=== PATIENT | female | born 1995 | race Caucasian/White ===

== ENCOUNTER 2018-03-31 10:24 | Emergency (ER) | payer MEDICAID, OTHER ==
[~2018-03-31] VITALS: Ht 157.5 cm; Wt 80.0 kg
[2018-03-31 10:30] VITALS: BP 119/59; PULSE 90; RESP 16; TEMP 98.6; O2SAT 99
[2018-03-31 10:57] VITALS: BP 120/62; PULSE 82; RESP 16; O2SAT 100
[2018-03-31 11:16] LABS: AUTOMATED NEUTROPHIL # 4.1 TH/MM3 (1.8-7.7); BASOPHIL % 0.4 % (0.0-2.0); EOSINOPHIL # 0.2 TH/MM3 (0-0.4); EOSINOPHIL % 2.3 % (0.0-4.0); HEMATOCRIT 37.8 % (35.0-46.0); HEMOGLOBIN 12.6 GM/DL (11.6-15.3); LYMPH % 30.2 % (9.0-44.0); LYMPHOCYTE # 2.1 TH/MM3 (1.0-4.8); MEAN CELL VOLUME 85.7 FL (80.0-100.0); MEAN CORPUSCULAR HEMOGLOBIN 28.6 PG (27.0-34.0); MEAN CORPUSCULAR HGB CONC 33.4 % (32.0-36.0); MEAN PLATELET VOLUME 8.7 FL (7.0-11.0); MONO % 7.6 % (0.0-8.0); MONOCYTE # 0.5 TH/MM3 (0-0.9); NEUT % 59.5 % (16.0-70.0); PLATELET COUNT 241 TH/MM3 (150-450); RED BLOOD COUNT 4.41 MIL/MM3 (4.00-5.30); RED CELL DISTRIBUTION WIDTH 13.8 % (11.6-17.2); WHITE BLOOD COUNT 6.9 TH/MM3 (4.0-11.0)
[2018-03-31 11:30] LABS: BLOOD UREA NITROGEN 9 MG/DL (7-18); CALCIUM 8.5 MG/DL (8.5-10.1); CHLORIDE 107 MEQ/L (98-107); CREATININE 0.69 MG/DL (0.50-1.00); GLOMERULAR FILTRATION RATE 106 ML/MIN (>89); GLUCOSE,RANDOM 88 MG/DL (74-106); SODIUM (NA) 139 MEQ/L (136-145)
[2018-03-31 11:33] LABS: TROPONIN I LESS THAN 0.02 NG/ML (0.02-0.05)
--- NOTE | 2018-03-31 11:57 | RADRPT ---
EXAM DATE: 03/31/2018 11:52 AM EDT AGE/SEX: 23 years / Female INDICATIONS: Chest pain today CLINICAL DATA: This is the patient's initial encounter. Patient reports that signs and symptoms have been present for 1 day and indicates a pain score of 8/10. MEDICAL/SURGICAL HISTORY: None. None. COMPARISON: No prior exams available for comparison. FINDINGS: A single AP view of the chest demonstrates the lungs to be symmetrically aerated without evidence of mass, infiltrate or effusion. The cardiomediastinal contours are unremarkable. Osseous structures a re intact. CONCLUSION: No acute cardiopulmonary process. Electronically signed by: Martin Miller MD 03/31/2018 11:56 AM EDT
--- NOTE | 2018-03-31 13:44 | PD ---
Physical Exam Narrative I, Dr. Horton, have reviewed the advance practice practitioner's documentation and am in agreement, met with the patient face to face, made the diagnosis, and the medical decision making was done by me. *My assessment and Findings: See mid-level provider note for full history and physical and disposition.Patient presents to the emergency department complaining of chest pain that started this morning while she was asleep. Pain is in left side radiating down her left arm. She describes the pain as being constant, nonradiating, 7-8 out of 10. States she has similar pain back in July and was admitted for observation and discharge soon thereafter. She reports some shortness of breath, but denies fever/chills/nausea/vomiting/ recent travel/lower extremity edema. Data Data Last Documented VS Vital Signs Date Time Temp Pulse Resp B/P (MAP) Pulse Ox O2 Delivery O2 Flow Rate FiO2 03/31/18 11:08 100 Nasal Cannula 2.00 03/31/18 11:08 (81) 03/31/18 10:57 82 16 03/31/18 10:30 98.6 Orders Orders Electrocardiogram (03/31/18 ) Complete Blood Count With Diff (03/31/18 10:58) Basic Metabolic Panel (Bmp) (03/31/18 10:58) Ckmb (Isoenzyme) Profile (03/31/18 10:58) Troponin I (03/31/18 10:58) Chest, Single Ap (03/31/18 10:58) Iv Access Insert/Monitor (03/31/18 10:58) Ecg Monitoring (03/31/18 10:58) Oxygen Administration (03/31/18 10:58) Oximetry (03/31/18 10:58) D-Dimer (03/31/18 11:09) Ed Urine Pregnancytest Poc (03/31/18 12:07) Ct Pulmonary Angiogram (03/31/18 ) Troponin I (03/31/18 13:43) Iohexol 350 Inj (Omnipaque 350 Inj) (03/31/18 14:00) Ketorolac Inj (Toradol Inj) (03/31/18 14:45) Ed Discharge Order (03/31/18 15:07) Labs Laboratory Tests Test 03/31/18 11:05 03/31/18 11:20 03/31/18 14:20 White Blood Count 6.9 TH/MM3 Red Blood Count 4.41 MIL/MM3 Hemoglobin 12.6 GM/DL Hematocrit 37.8 % Mean Corpuscular Volume 85.7 FL Mean Corpuscular Hemoglobin 28.6 PG Mean Corpuscular Hemoglobin Concent 33.4 % Red Cell Distribution Width 13.8 % Platelet Count 241 TH/MM3 Mean Platelet Volume 8.7 FL Neutrophils (%) (Auto) 59.5 % Lymphocytes (%) (Auto) 30.2 % Monocytes (%) (Auto) 7.6 % Eosinophils (%) (Auto) 2.3 % Basophils (%) (Auto) 0.4 % Neutrophils # (Auto) 4.1 TH/MM3 Lymphocytes # (Auto) 2.1 TH/MM3 Monocytes # (Auto) 0.5 TH/MM3 Eosinophils # (Auto) 0.2 TH/MM3 Basophils # (Auto) 0.0 TH/MM3 CBC Comment DIFF FINAL Differential Comment Blood Urea Nitrogen 9 MG/DL Creatinine 0.69 MG/DL Random Glucose 88 MG/DL Calcium Level 8.5 MG/DL Sodium Level 139 MEQ/L Potassium Level 3.8 MEQ/L Chloride Level 107 MEQ/L Carbon Dioxide Level 24.0 MEQ/L Anion Gap 8 MEQ/L Estimat Glomerular Filtration Rate 106 ML/MIN Total Creatine Kinase 60 U/L Troponin I LESS THAN 0.02 NG/ML LESS THAN 0.02 NG/ML D-Dimer Quantitative (PE/DVT) 0.82 MG/L FEU [facility] Supervised Visit with CRISTIAN: Yes Interpretation(s) ECG: Sinus rhythm, rate 86, no ST elevation or ST depression Labs: D-dimer elevated Last Impressions Chest X-Ray 03/31/18 1058 Signed Impressions: CONCLUSION: No acute cardiopulmonary process. Narrative Course First and second troponin negative, CTA negative for PE Diagnosis Primary Impression: Chest pain Qualified Codes: R07.9 - Chest pain, unspecified Patient Instructions: Chest Pain (ED), General Instructions Additional Instruction: 1. Meds as directed.2. Return to ER for fever, vomiting, shortness of breath, worsening chest pain, or for any new/worrisome/worsening symptoms. Med/Other Pt SpecificInfo: Prescription(s) given Scripts Diclofenac Sodium DR (Diclofenac Sodium DR) 75 Mg Tabdr 75 MG PO BID Y for PAIN SCALE 1 TO 10, #20 TAB 0 Refills Prov: Lauryn Horton MD 03/31/18 Disposition: 01 DISCHARGE HOME Condition: Stable Lauryn Horton MD Mar 31, 2018 13:44
--- NOTE | 2018-03-31 13:49 | PD ---
HPI Chief Complaint: Chest Pain Time Seen by Provider: 11:10 Travel History International Travel<30 days: No Contact w/Intl Traveler<30days: No Traveled to known affect area: No History of Present Illness HPI 23-year-old female that presents to the ED for evaluation of left-sided chest pain radiating to her shoulder. Per patient has had this for the past 1 day. She states that the pain is 7 out of 10. Radiates to her left shoulder. She has never had that before. Per patient she was at work when her coworkers told her that that is concerning and she should get checked. She comes here to get checked. Per patient she does not take anything for this. She did took an aspirin today before coming. States having had something like this in July and was not really given a diagnosis. States all she was doing was sleeping. Denies . pain worst with deep breaths. No recent travel. No vaginal bleeding. No bowel movement or urinary issues. No other medical issues at this time. Has no allergies to medication. Has not seen anybody for this. No history of asthma or COPD. Denies any smoking. Denies any drugs. PFSH Past Medical History Heart Rhythm Problems: Yes ?: Unknown LMP: january 2018 : 1 Para: 1 Past Surgical History Appendectomy: Yes Family History Family Myocardial Infarction: Yes Social History Alcohol Use: No Tobacco Use: No Substance Use: No Allergies-Medications (Allergen,Severity, Reaction): Coded Allergies: No Known Allergies (Unverified , 03/31/18) Reported Meds & Prescriptions Reported Meds & Active Scripts Active Diclofenac Sodium DR (Diclofenac Sodium) 75 Mg Tabdr 75 Mg PO BID PRN Review of Systems Except as stated in HPI: all other systems reviewed are Neg Physical Exam Narrative GENERAL: SKIN: Warm and dry. HEAD: Atraumatic. Normocephalic. EYES: Pupils equal and round. No scleral icterus. No injection or drainage. ENT: No nasal bleeding or discharge. Mucous membranes pink and moist. Tongue is midline. No uvula deviation. NECK: Trachea midline. No JVD. CARDIOVASCULAR: Regular rate and rhythm. No murmurs, S3, S4. RESPIRATORY: No accessory muscle use. Clear to auscultation. Breath sounds equal bilaterally. GASTROINTESTINAL: Abdomen soft, non-tender, nondistended. Hepatic and splenic margins not palpable. MUSCULOSKELETAL: Extremities without clubbing, cyanosis, or edema. No obvious deformities. Full range of motion of the upper and lower extremities bilaterally. 2+ pulses bilaterally. NEUROLOGICAL: Awake and alert. No obvious cranial nerve deficits. Motor grossly within normal limits. Five out of 5 muscle strength in the arms and legs. Normal speech. PSYCHIATRIC: Appropriate mood and affect; insight and judgment normal. Data Data Last Documented VS Vital Signs Date Time Temp Pulse Resp B/P (MAP) Pulse Ox O2 Delivery O2 Flow Rate FiO2 03/31/18 11:08 100 Nasal Cannula 2.00 03/31/18 11:08 (81) 03/31/18 10:57 82 16 03/31/18 10:30 98.6 Orders Orders Electrocardiogram (03/31/18 ) Complete Blood Count With Diff (03/31/18 10:58) Basic Metabolic Panel (Bmp) (03/31/18 10:58) Ckmb (Isoenzyme) Profile (03/31/18 10:58) Troponin I (03/31/18 10:58) Chest, Single Ap (03/31/18 10:58) Iv Access Insert/Monitor (03/31/18 10:58) Ecg Monitoring (03/31/18 10:58) Oxygen Administration (03/31/18 10:58) Oximetry (03/31/18 10:58) D-Dimer (03/31/18 11:09) Ed Urine Pregnancytest Poc (03/31/18 12:07) Ct Pulmonary Angiogram (03/31/18 ) Troponin I (03/31/18 13:43) Iohexol 350 Inj (Omnipaque 350 Inj) (03/31/18 14:00) Ketorolac Inj (Toradol Inj) (03/31/18 14:45) Ed Discharge Order (03/31/18 15:07) Labs Laboratory Tests Test 03/31/18 11:05 03/31/18 11:20 03/31/18 14:20 White Blood Count 6.9 TH/MM3 Red Blood Count 4.41 MIL/MM3 Hemoglobin 12.6 GM/DL Hematocrit 37.8 % Mean Corpuscular Volume 85.7 FL Mean Corpuscular Hemoglobin 28.6 PG Mean Corpuscular Hemoglobin Concent 33.4 % Red Cell Distribution Width 13.8 % Platelet Count 241 TH/MM3 Mean Platelet Volume 8.7 FL Neutrophils (%) (Auto) 59.5 % Lymphocytes (%) (Auto) 30.2 % Monocytes (%) (Auto) 7.6 % Eosinophils (%) (Auto) 2.3 % Basophils (%) (Auto) 0.4 % Neutrophils # (Auto) 4.1 TH/MM3 Lymphocytes # (Auto) 2.1 TH/MM3 Monocytes # (Auto) 0.5 TH/MM3 Eosinophils # (Auto) 0.2 TH/MM3 Basophils # (Auto) 0.0 TH/MM3 CBC Comment DIFF FINAL Differential Comment Blood Urea Nitrogen 9 MG/DL Creatinine 0.69 MG/DL Random Glucose 88 MG/DL Calcium Level 8.5 MG/DL Sodium Level 139 MEQ/L Potassium Level 3.8 MEQ/L Chloride Level 107 MEQ/L Carbon Dioxide Level 24.0 MEQ/L Anion Gap 8 MEQ/L Estimat Glomerular Filtration Rate 106 ML/MIN Total Creatine Kinase 60 U/L Troponin I LESS THAN 0.02 NG/ML LESS THAN 0.02 NG/ML D-Dimer Quantitative (PE/DVT) 0.82 MG/L FEU [facility] Medical Decision Making Medical Screen Exam Complete: Yes Emergency Medical Condition: Yes Medical Record Reviewed: Yes Interpretation(s) CBC & BMP Diagram 03/31/18 11:05 Calcium Level 8.5 D-dimer slightly positive. EKG shows sinus rhythm with no sign of acute ischemia and arrhythmia rhythm and attending. Troponin and CK-MB negative. Differential Diagnosis Chest pain versus a typical chest pain versus ACS versus pleurisy versus PE Narrative Course 23-year-old female that presents to the ED for evaluation of chest pain. Patient was properly examined and was found to have signs and symptoms of unclear etiology. This appears to be a typical chest pain. She does not really have risk factors for heart disease. Pain gets worse with deep breaths. D-dimer will be added to rule out PE to her blood work. Patient already had blood work started by ED triage. Labs and imaging showed no sign of acute disease at this time. D-dimer was positive to CT pulmonary exam was ordered. CT pulmonary exam was negative for acute findings. My attending Dr Horton evaluated the patient and recommends 2nd top and if negative patient can be discharged. Second troponin was negative. Patient was reassured. This time I think is reasonable for follow-up outpatient. Patient was given Toradol for pain. Patient was given a prescription for diclofenac sodium for pain. Told to follow-up with PCP. See ED worsening symptoms. Given paperwork for [facility]. Diagnosis Primary Impression: Chest pain Qualified Codes: R07.1 - Chest pain on breathing Additional Impression: Pleurisy Referrals: [facility] Patient Instructions: General Instructions Departure Forms: Tests/Procedures, Work Release Enter return to work date: Apr 02, 2018 Additional Instructions: Take medication as prescribed. Follow-up with PCP. See ED if worsening symptoms. Med/Other Pt SpecificInfo: Prescription(s) given Scripts Diclofenac Sodium DR (Diclofenac Sodium DR) 75 Mg Tabdr 75 MG PO BID Y for PAIN SCALE 1 TO 10, #20 TAB 0 Refills Prov: Lauryn Horton MD 03/31/18 Disposition: 01 DISCHARGE HOME Condition: Stable Tee Lau Mar 31, 2018 13:49
[2018-03-31] MEDS ORDERED: IOHEXOL 350 MG/ML 10 ML VIAL (for RAD DIAG) IVCONTRAST ONE (14:00)
--- NOTE | 2018-03-31 14:22 | RADRPT ---
EXAM DATE: 03/31/2018 2:13 PM EDT AGE/SEX: 23 years / Female INDICATIONS: Chest pain and left arm pain today. CLINICAL DATA: This is the patient's initial encounter. Patient reports that signs and symptoms have been present for 1 day and indicates a pain score of 7/10. MEDICAL/SURGICAL HISTORY: None. None. RADIATION DOSE: 8.02 CTDI (mGy) COMPARISON: No prior exams available for comparison. TECHNIQUE: Volumetric scanning was performed using a multi-row detector CT scanner during bolus infu cami of 58 ml Omnipaque 350 (iohexol) nonionic water-soluble contrast as a single exam dose. The otilia a was post processed with a variety of visualization algorithms including full volume maximum intensi ty projection and sliding thin slab reformation. Using automated exposure control and adjustment of the mA and/or kV according to patient size, radiation dose was kept as low as reasonably achievable t o obtain optimal diagnostic quality images. DICOM format image data is available electronically for review and comparison. FINDINGS: The examination is of good diagnostic quality. No pulmonary embolus is identified. The heart is normal in size. No hilar or mediastinal adenopathy is seen. No pericardial effusion is e vident. The visualized pulmonary parenchyma is clear. The limited portions of upper abdomen visualized are unremarkable. CONCLUSION: 1. No pulmonary embolus identified. 2. The lungs are clear. Electronically signed by: Sabas Kessler MD 03/31/2018 2:21 PM EDT
[2018-03-31] MEDS ORDERED: KETOROLAC TROMETHAMINE 30 MG/ML (IVP) VIAL IV PUSH ONE (14:45)
[2018-03-31] MEDS ORDERED: DICL75TA PO (14:49)
[2018-03-31 15:49] VITALS: BP 107/55
--- NOTE | 2018-03-31 22:52 | EKG ---
Date Performed: 03/31/2018 Time Performed: 10:48:51 PTAGE: 23 years EKG: Sinus rhythm WITH SINUS ARRHYTHMIA NORMAL ECG WARNING: DATA QUALITY MAY AFFECT INTERPRETATION NO PREVIOUS TRACING DOCTOR: Nani Rodrgiuez Interpretating Date/Time 03/31/2018 22:50:47
== END 2018-03-31 15:51 | disposition home or self-care (01) ==
LOC: NEPE 10:24
DX: R07.1 Chest pain on breathing (principal); R09.1 Pleurisy
CPT/HCPCS: 71045; 71275; 80048; 82550; 84484; 84703; 85025; 85379; 93005; 96374; 99285; J1885; Q9967